=== PATIENT | female | born 1970 | race Caucasian/White ===

== ENCOUNTER 2020-12-27 06:11 | Day surgery (SDC) | payer BC ==
[~2020-12-27 06:11] MED LIST: Lactated Ringers 1,000 ML IV SCH; Sodium Chloride 0.9% 10 ML SDV IV PRN; Sodium Chloride 0.9% 10 ML Syringe FLUSH PRN; Sodium Chloride 0.9% 2.5 ML Syringe FLUSH PRN; ceFAZolin 2 GM in Premix Bag 1 BAG IV ONE
[2020-12-27] MEDS ORDERED: Naloxone 0.4 MG/ML SDV IVPUSH PRN (06:55)
[2020-12-27] MEDS ORDERED: Albuterol 0.083% 2.5 MG/3 ML Neb Soln NEB PRN (06:55)
[2020-12-27] MEDS ORDERED: Metoclopramide 10 MG/2 ML SDV IVPUSH PRN (06:55)
[2020-12-27] MEDS ORDERED: HYDROmorphone 1 MG/ML Syringe IVPUSH PRN (06:55)
[2020-12-27] MEDS ORDERED: Ondansetron 4 MG/2 ML SDV IVPUSH PRN (06:55)
[2020-12-27] MEDS ORDERED: fentaNYL 100 MCG/2 ML SDV IVPUSH PRN (06:55)
--- NOTE | 2020-12-27 07:06 | PCM.PREANE ---
Preanesthetic Assessment - Anesthesia/Transfusion/Family Hx Anesthesia History: Prior Anesthesia Without Reaction Transfusion History: No Prior Transfusion(s) Intubation History: Unknown - Physical Assessment Vital Signs: Last Vital Signs Temp 97.5 F 12/27/20 06:47 Pulse 77 12/27/20 06:47 Resp 15 12/27/20 06:47 BP 119/72 12/27/20 06:47 Pulse Ox 99 12/27/20 06:47 Height: 5 ft 2 in Weight: 102 lb - Allergies Allergies/Adverse Reactions: Allergies Allergy/AdvReac Type Severity Reaction Status Date / Time No Known Allergies Allergy Verified 12/22/20 10:47 PreAnesthesia Questionnaire HEENT History: Reports: None Cardiovascular History: Reports: None Respiratory History: Reports: None Gastrointestinal History: Reports: None Genitourinary History: Reports: UTI, Recurrent Musculoskeletal History: Reports: None Neurological History: Reports: None Psychiatric History: Reports: Anxiety, Depression Endocrine/Metabolic History: Reports: None, Multinodular Thyroid Hematologic History: Reports: None Immunologic History: Reports: None Oncologic (Cancer) History: Reports: Cervix Dermatologic History: Reports: None - Past Surgical History Head Surgeries/Procedures: Reports: None HEENT Surgical History: Reports: Myringotomy w Tube(s), Tonsillectomy Cardiovascular Surgical History: Reports: None Respiratory Surgical History: Reports: None GI Surgical History: Reports: None Female Surgical History: Reports: LEEP Endocrine Surgical History: Reports: Other (See Below) Other Endocrine Surgeries/Procedures: thyroid bx Neurological Surgical History: Reports: None Musculoskeletal Surgical History: Reports: None Oncologic Surgical History: Reports: Other (See Below) Other Oncologic Surgeries/Procedures: LEEP Dermatological Surgical History: Reports: None - SUBSTANCE USE Tobacco Use Status *Q: Never Tobacco User - HOME MEDS Home Medications: Home Meds Ascorbic Acid [Vitamin C] 250 mg PO DAILY 12/20/17 [History] Calcium Carbonate/Vitamin D3 [Calcium 600 + Vit D Tablet] 1 tab PO TID 12/20/17 [History] Cholecalciferol (Vitamin D3) [Vitamin D3] 400 units PO DAILY 12/20/17 [History] Cranberry 200 mg PO DAILY 12/20/17 [History] Multivitamin [Multivitamins] 1 tab PO DAILY 12/20/17 [History] Vitamin E Acetate [Vitamin E] 200 units PO DAILY 12/20/17 [History] Cyanocobalamin (Vitamin B12) [Vitamin B12] 100 mcg PO DAILY 12/22/20 [History] Vitamin B Complex [B Complex] 1 tab PO DAILY 12/22/20 [History] - CURRENT (IN HOUSE) MEDS Current Meds: Current Medications Lactated Ringer's (Ringers, Lactated) 1,000 mls @ 125 mls/hr IV ASDIRECTED ELVIE Last Admin: 12/27/20 06:50 Dose: 125 mls/hr Documented by: Sodium Chloride (Sodium Chloride 0.9% 2.5 Ml Syringe) 2.5 ml FLUSH ASDIRECTED PRN PRN Reason: Keep Vein Open Sodium Chloride (Sodium Chloride 0.9% 10 Ml Sdv) 10 ml IV ASDIRECTED PRN PRN Reason: IV Use Sodium Chloride (Sodium Chloride 0.9% 10 Ml Syringe) 10 ml FLUSH ASDIRECTED PRN PRN Reason: Keep Vein Open Discontinued Medications Cefazolin Sodium/Dextrose 2 gm (/ Premix) 50 mls @ 100 mls/hr IV ONETIME ONE Stop: 12/26/20 13:57
[2020-12-27] MEDS ORDERED: Propofol 200 MG/20 ML SDV ONE (07:21)
[2020-12-27] MEDS ORDERED: Ondansetron 4 MG/2 ML SDV ONE (07:21)
[2020-12-27] MEDS ORDERED: Dexamethasone 4 MG/ML 5 ML MDV ONE (07:21)
[2020-12-27] MEDS ORDERED: Midazolam 1 MG/ML 2 ML SDV ONE (07:21)
[2020-12-27] MEDS ORDERED: fentaNYL 100 MCG/2 ML SDV ONE (07:21)
[2020-12-27] MEDS ORDERED: Bupivacaine 0.5% 10 ML SDV ONE (07:30)
[2020-12-27] MEDS ORDERED: Iopamidol 408 MG/ML 20 ML SDV ONE (07:30)
[2020-12-27] MEDS ORDERED: Heparin Sodium 100 Units/ML 3 ML Syringe ONE (07:30)
[2020-12-27] MEDS ORDERED: Lidocaine 1% 20 ML MDV ONE (07:30)
[2020-12-27] MEDS ORDERED: Octyl 2-Cyanoacrylate 1 Tube ONE (07:32)
--- NOTE | 2020-12-27 09:00 | PCM.OPNOTE ---
- General Post-Op/Procedure Note Date of Surgery/Procedure: 12/27/20 Operative Procedure(s): Right internal jugular port a cath placement Findings: RIJ port Pre Op Diagnosis: Cervical cancer Post-Op Diagnosis: same Anesthesia Technique: General LMA Primary Surgeon: Vivien Pierce Fluid Replacement, Intraop: 600 EBL in mLs: 5 Condition: Good
--- NOTE | 2020-12-27 09:10 | PCM.POSTAN ---
POST ANESTHESIA ASSESSMENT - MENTAL STATUS Mental Status: Alert, Oriented - VITAL SIGNS Vital Signs: Last Vital Signs Temp 97.7 F 12/27/20 08:56 Pulse 76 12/27/20 09:02 Resp 15 12/27/20 09:02 BP 101/55 L 12/27/20 09:02 Pulse Ox 97 12/27/20 09:02 - RESPIRATORY Respiratory Status: Respiratory Rate WNL, Airway Patent, O2 Saturation Stable - CARDIOVASCULAR CV Status: Pulse Rate WNL, Blood Pressure Stable - GASTROINTESTINAL GI Status: No Symptoms - POST OP HYDRATION Hydration Status: Adequate & Stable
--- NOTE | 2020-12-27 09:12 | PCM48HPAN ---
Post Anesthesia Note - EVALUATION WITHIN 48HRS OF ANESTHETIC Vital Signs in Normal Range: Yes Patient Participated in Evaluation: Yes Respiratory Function Stable: Yes Airway Patent: Yes Cardiovascular Function Stable: Yes Hydration Status Stable: Yes Pain Control Satisfactory: Yes Nausea and Vomiting Control Satisfactory: Yes Mental Status Recovered: Yes Vital Signs: Last Vital Signs Temp 97.7 F 12/27/20 08:56 Pulse 72 12/27/20 09:07 Resp 15 12/27/20 09:07 BP 108/58 L 12/27/20 09:07 Pulse Ox 98 12/27/20 09:07
--- NOTE | 2020-12-27 10:01 | CR ---
Indication: Port-A-Cath placement. Technique: Chest 1 view. Comparison: None. Findings/Impression: Cardiovascular and mediastinum: Heart size and vasculature are normal in caliber and appearance. Right-sided port catheter appears in satisfactory position. Lungs and pleural space: Lungs are clear. No sign of infiltrate or mass. No sign of pleural effusion. No pneumothorax. Bones and soft tissues: No acute findings. Dictated by Jd Carlos MD @ 12/27/2020 10:00:51 AM (Electronically Signed)
--- NOTE | 2020-12-27 13:38 | OR ---
SURGEON: VIVIEN PIERCE MD DATE OF PROCEDURE: 12/27/2020 PREOPERATIVE DIAGNOSIS: Cervical cancer. POSTOPERATIVE DIAGNOSIS: Cervical cancer. PROCEDURE PERFORMED: Right internal jugular Port-A-Cath placement. PRIMARY SURGEON: Vivien Pierce MD ANESTHESIA: General LMA. FLUIDS: 600 mL crystalloid. ESTIMATED BLOOD LOSS: 5 mL. FINDINGS: Uncomplicated placement of right internal jugular Port-A-Cath. COMPLICATIONS: None. INDICATIONS: The patient is a 50-year-old female with cervical cancer. She was sent to my office in consultation for Port-A-Cath placement for chemotherapy. I explained the procedure, expected perioperative course, and the risks in detail. The patient verbalized understanding and wishes to proceed. PROCEDURE IN DETAIL: The patient was brought to the OR and placed on the OR table in supine position. A time-out was completed verifying the patient's name, age, date of , allergies, and procedure to be performed. General LMA anesthesia was induced. A shoulder roll was tucked into the patient's shoulders and both arms tucked to the patient's side. An ultrasound was brought into the field and I verified the vascular anatomy of the right side of the neck. The neck and chest were then prepped and draped in usual standard fashion. Using a sterile ultrasound probe, I then re-identified the vascular anatomy of the right side of the neck. Using 1% lidocaine plain, I anesthetized the area over the right internal jugular vein as well as on the anterior chest wall where the port and tubing would go. The patient was then placed into Trendelenburg position. A guide needle was placed into the right internal jugular vein under ultrasound guidance. A good return of venous blood was noted. A guidewire was then placed down the needle into the vena cava. The guidewire was secured to the drapes and the C-arm brought in to verify placement of the guidewire in the correct position. I then turned my attention to the anterior chest wall. Two fingerbreadths below the lateral right clavicle, I used a 15-blade to make a 3 cm incision. Cautery was used to dissect down to the chest wall. A subcutaneous pocket was then created. An 11- blade was used to make a zay overlying the guidewire on the neck. I then tunneled the catheter tubing from the anterior chest wall site up to the catheter site on the neck. A vascular sheath and dilator were then placed over the guidewire. Using fluoroscopic guidance, I dilated up the vascular tract. The dilator and guidewire were then removed. The catheter tubing was placed down the vascular sheath into the superior vena cava. The vascular sheath was then peeled away. Fluoroscopy was used to guide the tip of the catheter into the distal superior vena cava. I accessed the end of the catheter tubing and had a good return of venous blood. It was then flushed with injectable saline. The catheter tubing was then trimmed and placed on the Port-A-Cath device. The port was then placed into the chest wall and the port was secured within the chest in the pocket with 2-0 Prolene sutures on either side of the Port-A-Cath device. I accessed the Port-A-Cath with a Navarrete needle. Good return of venous blood was noted. I then locked to the Port-A-Cath with 3 mL of heparinized saline. The subcutaneous fat layer on the anterior chest wall site was closed with a running 3-0 Vicryl stitch. The skin was closed with a running 4-0 Monocryl suture. The insertion site on the neck was closed with an interrupted 4-0 Monocryl suture. Dermabond and sterile dressings were applied. The patient tolerated the procedure well and was extubated and taken to PACU in stable condition. An x-ray was taken in the PACU that showed good placement of the Port-A-Cath with no acute complications. All counts were complete and correct at the end of the case. ANGELO RUTLEDGE /[id number]
--- NOTE | 2020-12-28 12:26 | CR ---
INDICATION: Port-A-Cath placement TECHNIQUE: Intraoperative C-arm fluoroscopy. IMPRESSION: Intraoperative C-arm fluoroscopy was provided. Fluoroscopy time 20.1 seconds. Three images were captured. Dictated by Prince Conklin MD @ 12/28/2020 12:24:31 PM (Electronically Signed)
== END 2020-12-27 10:09 | disposition home or self-care (01) ==
LOC: MW.SDS 06:11
PROVIDERS: ATTEND Surgery
DX: C53.9 Malignant neoplasm of cervix uteri, unspecified (principal); Z79.899 Other long term (current) drug therapy; Z98.890 Other specified postprocedural states; Z01.812 Encounter for preprocedural laboratory examination; Z20.822 Contact with and (suspected) exposure to COVID-19
CPT/HCPCS: 36561; 71045; 76000; 87635; A9270; J0690; J1100; J1642; J2250; J2405; J2704; J3010; J3490; J7120; Q9966; 00532; U0002